=== PATIENT | male | born 1975 | race Caucasian/White ===

== ENCOUNTER → 2024-08-24 | Outpatient (CLI) | payer BC, SELFPAY ==
[2024-08-24 10:41] LABS: Thyroid Stimulating Hormone 1.85 uIU/mL (0.55-4.78)
[2024-08-24 10:51] LABS: T4 (Thyroxine) 8.5 mcg/dL (4.5-10.9)
[2024-08-24 12:07] LABS: Glucose Estimated Average 111 mg/dL (80-131); Hemoglobin A1C 5.5 % Hgb (4.8-6.0)
== END | disposition home or self-care (01) ==
LOC: COPL 08:37
PROVIDERS: PCP Family Medicine; Referring Provider Family Medicine; Visit Provider Family Medicine
DX: E11.65 Type 2 diabetes mellitus with hyperglycemia (principal); E04.1 Nontoxic single thyroid nodule
CPT/HCPCS: 36415; 83036; 84436; 84443

== ENCOUNTER → 2024-09-10 | Outpatient (CLI) | payer BC, SELFPAY ==
--- NOTE | 2024-09-10 15:30 | XR_ITS ---
Examination: Thyroid sonography complete TECHNIQUE: Grayscale sonographic images thyroid lobes with color flow analysis Exam date and time: September 10, 2024 1528 hours INDICATIONS: Large cold nodule left thyroid lobe Medicine thyroid scan April 02, 2024. FINDINGS: Right thyroid 5.4 x 1.9 x 2.5 cm Midpole cyst 3 x 3 mm Lower pole nodule 4 x 4 millimeter Left thyroid 5.8 x 3.4 x 4.1 cm Vascular nodule replacing most of the left thyroid lobe 4.0 x 3.2 x 3.6 cm IMPRESSION: Large vascular left thyroid nodule 0.0 x 3.2 x 3.6 cm Consider ultrasound-guided fine-needle aspiration of this nodule to assess for malignant cytology
== END | disposition home or self-care (01) ==
PROVIDERS: PCP Family Medicine; Referring Provider Family Medicine; Visit Provider Family Medicine
DX: E04.1 Nontoxic single thyroid nodule (principal)
CPT/HCPCS: 76536

== ENCOUNTER → 2024-09-10 | Outpatient (CLI) | payer SELFPAY ==
[2024-09-10 08:33] LABS: Basophils # (Auto) 0.1 Thou/mm3 (0.0-0.2); Basophils % (Auto) 1 % (0-2.5); Eosinophils # (Auto) 0.2 Thou/mm3 (0.0-0.5); Eosinophils % (Auto) 2 % (0-10); Hematocrit 42.9 % (41.0-53.0); Hemoglobin 13.7 g/dL (13.5-16.0); Immature Granulocytes % (Auto) 0 % (0-0); Immature Granulocytes Auto 0.03 Thou/mm3 (0.00-0.00); Lymphocytes # (Auto) 2.3 Thou/mm3 (1.0-4.8); Lymphocytes % (Auto) 22 % (10-50); Mean Corpuscular HGB Conc 31.9 g/dl (31.0-37.0); Mean Corpuscular Hemoglobin 28.4 pg (25.0-35.0); Mean Corpuscular Volume 89 fL (80-100); Monocytes % (Auto) 9 % (0-12); Neutrophils # (Auto) 7.2 Thou/mm3 (1.8-7.7); Neutrophils % (Auto) 67 % (37-80); Nucleated Red Blood Cell % 0 /100 WBC (0); Platelet Count 396 Thou/mm3 (140-440); RDW Standard Deviation 49.3 fL (35.1-43.9); Red Blood Count 4.83 Miln/mm3 (4.50-5.90); White Blood Count 10.9 Thou/mm3 (3.8-10.6)
[2024-09-10 08:42] LABS: Glucose Estimated Average 114 mg/dL (80-131); Hemoglobin A1C 5.6 % Hgb (4.8-6.0)
[2024-09-10 09:02] LABS: Free T4 (Free Thyroxine) 1.13 ng/dL (0.89-1.76); Thyroid Stimulating Hormone 3.81 uIU/mL (0.55-4.78)
== END | disposition home or self-care (01) ==
PROVIDERS: PCP Family Medicine; Referring Provider Family Medicine; Visit Provider Family Medicine
DX: E04.1 Nontoxic single thyroid nodule (principal); E11.65 Type 2 diabetes mellitus with hyperglycemia
CPT/HCPCS: 36415; 82533; 83036; 84439; 84443; 85025

== ENCOUNTER → 2024-12-02 | Outpatient (CLI) | payer BC, SELFPAY ==
[2024-12-01 16:57] LABS: Basophils # (Auto) 0.1 Thou/mm3 (0.0-0.2); Basophils % (Auto) 1 % (0-2.5); Eosinophils # (Auto) 0.3 Thou/mm3 (0.0-0.5); Eosinophils % (Auto) 2 % (0-10); Immature Granulocytes % (Auto) 0 % (0-0); Immature Granulocytes Auto 0.05 Thou/mm3 (0.00-0.00); Lymphocytes % (Auto) 23 % (10-50); Mean Corpuscular HGB Conc 31.7 g/dl (31.0-37.0); Mean Corpuscular Hemoglobin 28.1 pg (25.0-35.0); Mean Corpuscular Volume 89 fL (80-100); Monocytes # (Auto) 1.2 Thou/mm3 (0.0-0.8); Monocytes % (Auto) 9 % (0-12); Neutrophils # (Auto) 8.3 Thou/mm3 (1.8-7.7); Neutrophils % (Auto) 64 % (37-80); Nucleated Red Blood Cell % 0 /100 WBC (0); Platelet Count 452 Thou/mm3 (140-440); RDW Standard Deviation 50.6 fL (35.1-43.9); Red Blood Count 4.63 Miln/mm3 (4.50-5.90)
[2024-12-01 17:16] LABS: Partial Thromboplastin Time 31.1 Seconds (22.0-36.0); Prothrombin Time 10.6 Seconds (9.0-12.2)
--- NOTE | 2024-12-02 09:30 | XR_ITS ---
Examination: Ultrasound-guided fine needle percutaneous aspiration thyroid nodule, left thyroid nodule. Thyroid sonography, limited Exam date and time: December 02, 2024 1022 hours INDICATIONS: Thyroid sonogram September 10, 2024 large vascular left thyroid nodule. Technique: A timeout was completed verifying correct patient, procedure, site, positioning and special equipment if applicable. The patient was placed in supine position for the thyroid fine needle percutaneous aspiration The patient's left neck was prepped and draped in sterile fashion. Maximum barrier sterile technique, hand hygiene, ultrasound sterile technique. 1% lidocaine was used to anesthetize the skin and subcutaneous tissues to the patient's right thyroid nodule. Multiple fine needle aspirations were performed and multiple thyroid specimens placed in preservative according to the irm protocol. Specimens appears satisfactory. The attending radiologist was present for the entire procedure. Estimated blood loss 3 cc. The patient tolerated the procedure well and there were no complications. Impression: Successful ultrasound-guided fine-needle percutaneous aspiration thyroid nodule, vascular left thyroid nodule.
== END | disposition home or self-care (01) ==
PROVIDERS: Radiology Diagnostic Radiology; PCP Family Medicine; Referring Provider Family Medicine; Visit Provider Family Medicine
DX: E04.1 Nontoxic single thyroid nodule (principal); Z01.812 Encounter for preprocedural laboratory examination
CPT/HCPCS: 10005; 36415; 85025; 85610; 85730

== ENCOUNTER 2025-06-03 13:30 | Outpatient (RCR) | payer BC, SELFPAY ==
--- NOTE | 2025-05-26 13:20 | PT.OIERPT ---
PT OP Initial Eval Patient Information Outpatient Physical Therapy Treatment Date: 05/26/25 Visit Reasons: TENDONITIS RIGHT SHOULDER Medical Diagnosis: M75.41; M75.21 Treatment Dx #1: Right Shoulder Pain Start of Care: 05/26/25 Date of Onset: 8 years ago Smoking Status Smoking Status: Never smoker Initial Assessment Subjective: Pt is a 50 y/o male reports of chronic right shoulder and neck pain (04/18) with right UE numbness. Pt notice most tingling in his 4th and 5th digits. No MRI has been thus far. Pt is having a EMG study done soon. Pt has limitation with lifting, chores, self care, cooking, cleaning, work duties, overhead motions, and performing recreational activities. Objective: Right Shoulder PROM: all motions are WFL Right Shoulder AROM Flexion: 160 deg Abduction: 140 deg External Rotation: 80 deg Internal Rotation: 70 deg Right Shoulder MMTs: grossly 3+/5 Right Scapula MMTs: grossly 3/5 Special Test (+) speed (+) active sales's (-) drop arm test Assessment: Pt demonstrate right shoulder mobility and strength deficits leading to difficulty with ADLs. Pt will attempt physical therapy if pain persist Pt will be refer back to provider for further consultation. Short Term and Acute Care Nurse Goals 1) Increase right shoulder AROM WFL in 8 wks to be able to perform overhead motions 2) Decrease shoulder pain to 2/10 in 8 wks to be able to perform chores 3) Increase right shoulder MMTs grossly to 4-/5 in 8 wks to be able to perform work duties 4) Increase right scapula MMTs grossly to 3+/5 in 8 wks to be able to perform recreational activities 5) Indep with HEP Treatment Plan 1) Manual Therapy 2) Therapeutic Activities 3) Therapeutic Exercises 4) Modalities (ice, heat) Frequency and Duration: 2 x wk for 8 wks Certification Dates: 05/26/25 to 08/25/25 Procedure Charges OP PT Eval Mod Complex 30 minutes: Yes
--- NOTE | 2025-05-31 14:07 | PT.ODAYNRPT ---
PT Outpatient Daily Note OP Daily Note Outpatient Physical Therapy Treatment Date: 05/31/25 Visit Reasons: TENDONITIS RIGHT SHOULDER Subjective: Pt reports he can do most of his ADLs but can not lift and hold weighted objects. Objective: Please see flow sheet for ther ex list. Assessment: Interventions completed with minimal pain and soreness, applied cold pack at the end of session. Plan: Assess response to treatment. Length of Time (minutes) of Treatment: 30 Minutes Procedure Charges Therapeutic Exercise 30 minutes: Yes
--- NOTE | 2025-06-03 16:15 | PT.ODAYNRPT ---
PT Outpatient Daily Note OP Daily Note Outpatient Physical Therapy Treatment Date: 06/03/25 Visit Reasons: TENDONITIS RIGHT SHOULDER Subjective: Pt's shoulder feels about the same. No change in overall pain. Objective: Please see flow chart for list of ther ex performed Assessment: pain towards end range flexion and scaption AAROM with wall slide exercises Plan: Continue with PT Length of Time (minutes) of Treatment: 30 Minutes Procedure Charges Therapeutic Exercise 30 minutes: Yes
== END 2025-06-08 23:59 | disposition home or self-care (01) ==
LOC: CPTX 13:30
PROVIDERS: PCP Student in an Organized Health Care Education/Training Program; Referring Provider Student in an Organized Health Care Education/Training Program; Visit Provider Student in an Organized Health Care Education/Training Program
DX: M25.511 Pain in right shoulder (principal); M54.2 Cervicalgia; G89.29 Other chronic pain; R20.0 Anesthesia of skin; R20.2 Paresthesia of skin; M75.41 Impingement syndrome of right shoulder; M75.21 Bicipital tendinitis, right shoulder
CPT/HCPCS: 97110; 97162

== ENCOUNTER 2025-06-11 14:08 | Outpatient (RCR) | payer BC, SELFPAY ==
--- NOTE | 2025-06-11 16:03 | PT.ODAYNRPT ---
PT Outpatient Daily Note OP Daily Note Outpatient Physical Therapy Treatment Date: 06/11/25 Visit Reasons: right shoulder tendonitis Subjective: Pt's shoulder feels about the same. Pt completed EMG test and does not know the results. Objective: Please see flow chart for list of ther ex performed Assessment: minimal changes with pain. Pt still demonstrate pain with end range pain. Plan: Continue with PT Length of Time (minutes) of Treatment: 30 Minutes Procedure Charges Therapeutic Exercise 30 minutes: Yes
--- NOTE | 2025-07-21 10:11 | PT.ODS1RPT ---
PT OP Progress/Discharge Note Date of Service: 07/30/25 Progress Note/DC Note Progress Note/Discharge Note: DC Note Patient Information Visit Reasons: right shoulder tendonitis Service Discharge Date: 07/21/25 Status Assessment: Pt has been seen for 4 visits (eval + 3 visits). Pt last treated on 06/11/25 and no showed 06/16/25 appt. Pt has been contact multiple times without success. At this time Pt will be d/c from care due to non-compliance per attendance policy. Pt did not meet set goals in therapy; thank you for your referrals.
== END 2025-07-09 23:59 | disposition home or self-care (01) ==
LOC: CPTX 14:08
PROVIDERS: PCP Student in an Organized Health Care Education/Training Program; Referring Provider Student in an Organized Health Care Education/Training Program; Visit Provider Student in an Organized Health Care Education/Training Program
DX: M25.511 Pain in right shoulder (principal); M54.2 Cervicalgia; M75.21 Bicipital tendinitis, right shoulder; G89.29 Other chronic pain; M75.41 Impingement syndrome of right shoulder
CPT/HCPCS: 97110

== ENCOUNTER → 2025-06-24 | Outpatient (CLI) | payer BC, SELFPAY ==
[2025-06-24 08:43] LABS: Basophils # (Auto) 0.1 Thou/mm3 (0.0-0.2); Basophils % (Auto) 1 % (0-2.5); Eosinophils # (Auto) 0.2 Thou/mm3 (0.0-0.5); Eosinophils % (Auto) 2 % (0-10); Hematocrit 42.0 % (41.0-53.0); Hemoglobin 13.3 g/dL (13.5-16.0); Immature Granulocytes Auto 0.02 Thou/mm3 (0.00-0.00); Lymphocytes # (Auto) 1.9 Thou/mm3 (1.0-4.8); Lymphocytes % (Auto) 23 % (10-50); Mean Corpuscular HGB Conc 31.7 g/dl (31.0-37.0); Mean Corpuscular Hemoglobin 28.2 pg (25.0-35.0); Mean Corpuscular Volume 89 fL (80-100); Monocytes # (Auto) 0.7 Thou/mm3 (0.0-0.8); Monocytes % (Auto) 9 % (0-12); Neutrophils # (Auto) 5.6 Thou/mm3 (1.8-7.7); Neutrophils % (Auto) 66 % (37-80); Nucleated Red Blood Cell # 0.00 Thou/mm3 (0.00-0.00); Nucleated Red Blood Cell % 0 /100 WBC (0); Platelet Count 355 Thou/mm3 (140-440); RDW Standard Deviation 50.8 fL (35.1-43.9); Red Blood Count 4.71 Miln/mm3 (4.50-5.90); White Blood Count 8.5 Thou/mm3 (3.8-10.6)
[2025-06-24 08:58] LABS: Creatinine MALB Rnd Ur 84 mg/dL (30-125); Microalbumin Creat Ratio 12 mg/gCrea (<30); Microalbumin, Random Urine 10 mg/L (0-300)
[2025-06-24 09:04] LABS: Alanine Aminotransferase 19 U/L (10-49); Albumin, Serum 4.2 gm/dL (3.5-5.0); Albumin/Globulin Ratio 1.7 (1.2-2.2); Alkaline Phosphatase 129 U/L (46-116); Anion Gap 9 (7-16); Aspartate Amino Transferase 22 U/L (0-34); BUN/Creatinine Ratio 15 Ratio (12-20); Bilirubin,Total 0.4 mg/dL (0.3-1.2); Blood Urea Nitrogen 19 mg/dL (9-23); Calcium 9.8 mg/dL (8.3-10.6); Calcium (Corrected) 9.8 mg/dL (8.5-10.1); Carbon Dioxide 26.3 mMol/L (20.0-31.0); Cardiac Risk Estimate 5.5 RATIO (4.0-6.7); Chloride 104 mMol/L (98-107); Cholesterol 187 mg/dL (132-200); Creatinine (Component) 1.3 mg/dL (0.6-1.3); Globulin 2.5 gm/dL (2.3-3.5); Glucose 101 mg/dL (74-106); HDL Cholesterol 34 mg/dL (40-60); LDL Cholesterol,Calculated 124 mg/dL (0-130); Osmolality,Calculated 279 (275-295); Potassium 4.2 mMol/L (3.4-5.1); Sodium 139 mMol/L (136-145); Thyroid Stimulating Hormone 2.98 uIU/mL (0.55-4.78); Total Protein 6.7 gm/dL (5.7-8.2); Triglycerides 146 mg/dL (30-150); Uric Acid 9.3 mg/dL (3.7-9.2); eGFR > 60 See Note
[2025-06-24 09:11] LABS: Glucose Estimated Average 117 mg/dL (80-131); Hemoglobin A1C 5.7 % Hgb (4.8-6.0)
[2025-06-24 09:21] LABS: T4 (Thyroxine) 8.4 mcg/dL (4.5-10.9)
== END | disposition home or self-care (01) ==
LOC: COPL 07:29
PROVIDERS: PCP Family Medicine; Referring Provider Family Medicine; Visit Provider Family Medicine
DX: E11.65 Type 2 diabetes mellitus with hyperglycemia (principal); I10 Essential (primary) hypertension; E04.1 Nontoxic single thyroid nodule; M10.9 Gout, unspecified
CPT/HCPCS: 36415; 80053; 80061; 82043; 82570; 83036; 84436; 84443; 84550; 85025